=== PATIENT | male | born 1960 | race Caucasian/White ===

== ENCOUNTER 2017-02-14 15:29 | Emergency (ER) | payer BC ==
[2017-02-14] MEDS ORDERED: Mag-Al Plus 1200 MG/1200 MG/120 MG/30 ML UDCUP ONE (16:30)
[2017-02-14] MEDS ORDERED: Dexamethasone 20 MG/5 ML VIAL ONE (16:30)
[2017-02-14] MEDS ORDERED: Ibuprofen 600 MG TAB ONE (16:31)
== END 2017-02-14 16:49 | disposition home or self-care (01) ==
LOC: SCSER 15:29
DX: K12.1 Other forms of stomatitis (principal); E78.5 Hyperlipidemia, unspecified; I10 Essential (primary) hypertension
CPT/HCPCS: 99283; J1100